=== PATIENT | female | born 1985 | race Caucasian/White ===

== ENCOUNTER 2023-10-31 12:40 | Inpatient (IN) | payer MEDICAID ==
[~2023-10-31] VITALS: Ht 157.5 cm; Wt 68.0 kg
[2023-10-31] MEDS ORDERED: CARBOPROST 250 MCG/ML AMP IM PRN (12:50)
[2023-10-31] MEDS ORDERED: METHYLERGONOVINE 0.2 MG/ML AMP IM PRN ×2 (12:50→14:40)
[2023-10-31] MEDS ORDERED: LACTATED RINGERS 1,000 ML IV SCH ×2 (12:50→13:10)
[2023-10-31] MEDS ORDERED: AMPICILLIN 2,000 MG in NACL 0.9% MINI-BAG PLUS 100 ML IV SCH ×2 (12:50→13:10)
[2023-10-31] MEDS ORDERED: ONDANSETRON 4 MG/2 ML VIAL IVP PRN (13:10)
[2023-10-31] MEDS ORDERED: NALBUPHINE 10 MG/ML AMP IVP PRN (13:10)
[2023-10-31] MEDS ORDERED: LACTATED RINGERS 500 ML IV ONE (13:10)
[2023-10-31] MEDS ORDERED: ONDANSETRON 4 MG/2 ML VIAL ONE (13:13)
[2023-10-31] MEDS ORDERED: NALBUPHINE 10 MG/ML AMP ONE (13:13)
[2023-10-31] MEDS: ACETAMINOPHEN 325 MG TAB PO PRN ×2 (13:36→19:03)
[2023-10-31] MEDS ORDERED: OXYTOCIN 20 UNITS/LR PREMIX 1,000 ML IV ONE (14:17)
[2023-10-31] MEDS ORDERED: OXYTOCIN 20 UNITS in LACTATED RINGERS 1,000 ML IV SCH (14:30)
[2023-10-31] MEDS ORDERED: LIDOCAINE MPF 1% 10 MG/ML VIAL INJ SCH (14:30)
[2023-10-31] MEDS ORDERED: LIDOCAINE 1% 500 MG/50 ML VIAL ONE (14:38)
[2023-10-31] MEDS ORDERED: TEMAZEPAM 15 MG CAP PO PRN (14:40)
[2023-10-31] MEDS ORDERED: oxyCODONE/APAP 5/325 MG 1 TAB TAB PO PRN ×2 (14:40)
[2023-10-31] MEDS ORDERED: IBUPROFEN 800 MG TAB PO PRN (14:40)
[2023-10-31] MEDS ORDERED: BENZOCAINE/MENTHOL 20%-0.5% 60 GM CAN TP PRN (14:40)
[2023-10-31] MEDS ORDERED: OXYTOCIN 10 UNITS/ML VIAL IM PRN (14:40)
[2023-10-31] MEDS ORDERED: METHYLERGONOVINE 0.2 MG TAB PO PRN (14:40)
[2023-10-31] MEDS ORDERED: AMPICILLIN 1,000 MG in NACL 0.9% MINI-BAG PLUS 50 ML IV SCH (16:00)
[2023-10-31] MEDS ORDERED: DOCUSATE SOD/SENNA 50/8.6 MG 1 TAB PO SCH (21:00)
== END 2023-11-01 21:47 | disposition left against medical advice (07) | DRG 560 ==
LOC: MLD 12:40 → OBSVTOIN 13:26 → MFCC 17:10
PROVIDERS: ADMIT Obstetrics & Gynecology; ATTEND Obstetrics & Gynecology
PROC: 10E0XZZ Delivery of Products of Conception, External Approach (ICD-10-PCS; principal; 2023-10-31)
DX: O62.3 Precipitate labor (principal); Z37.0 Single live birth; O70.9 Perineal laceration during delivery, unspecified; Z3A.39 39 weeks gestation of pregnancy
CPT/HCPCS: 59409; J2001; J2300; J2405; J2590

== ENCOUNTER 2023-11-02 17:11 | Emergency (ER) | payer MEDICAID ==
[~2023-11-02] VITALS: Ht 167.6 cm; Wt 72.6 kg
[2023-11-02 17:51] VITALS: BP 115/81; PULSE 127; RESP 22; TEMP 98; O2SAT 98
[2023-11-02 18:00] VITALS: PULSE 128
[2023-11-02] MEDS ORDERED: NACL 0.9% 1,000 ML IV SCH (18:15)
[2023-11-02 18:44] VITALS: O2SAT 98
== END 2023-11-02 20:15 | disposition left against medical advice (07) ==
LOC: MED 17:11
DX: N93.9 Abnormal uterine and vaginal bleeding, unspecified (principal); Z79.899 Other long term (current) drug therapy
CPT/HCPCS: 99281